=== PATIENT | female | born 1950 | race Asian ===

== ENCOUNTER 2020-09-29 06:26 | Day surgery (SDC) | payer OTHER, SELFPAY ==
[~2020-09-29] VITALS: Ht 149.9 cm; Wt 44.0 kg
[2020-09-29] MEDS ORDERED: diphenhydrAMINE 50 MG/ML VIAL ONE (07:43)
[2020-09-29] MEDS ORDERED: fentaNYL citrate 0.05 MG/ML VIAL ONE (07:43)
[2020-09-29] MEDS ORDERED: LIDOCAINE 2% 100 MG/5 ML UJET TP ONE (07:43)
[2020-09-29] MEDS ORDERED: MIDAZOLAM 5 MG/5 ML VIAL ONE (07:43)
[2020-09-29] MEDS ORDERED: MIDAZOLAM 2 MG/2 ML VIAL IVP ONE (09:00)
[2020-09-29] MEDS ORDERED: fentaNYL citrate 0.05 MG/ML VIAL IVP ONE (09:00)
== END 2020-09-29 09:10 | disposition home or self-care (01) ==
LOC: MDS 06:26 → MFCC 06:28 → MDS 09:10
PROVIDERS: ATTEND Internal Medicine Gastroenterology
DX: Z12.11 Encounter for screening for malignant neoplasm of colon (principal); E11.9 Type 2 diabetes mellitus without complications; E78.00 Pure hypercholesterolemia, unspecified; I10 Essential (primary) hypertension; Z79.899 Other long term (current) drug therapy; Z98.890 Other specified postprocedural states; Z20.828 Contact with and (suspected) exposure to other viral communicable diseases
CPT/HCPCS: 45378; J2250; J3010; U0003; J1200